=== PATIENT | female | born 1930 | race Caucasian/White ===

== ENCOUNTER 2017-08-05 21:41 | Inpatient (IN) | payer OTHER ==
[~2017-08-05] VITALS: Ht 160 cm; Wt 71.7 kg
[2017-08-06] VITALS (9 sets, daily range): BP systolic 102–134; BP diastolic 60–79; PULSE 88–113; TEMP 36.4–37.3; O2SAT 95–100; BMI 28.0
[2017-08-06] MEDS ORDERED: MULTCHW PO (00:40)
[2017-08-06] MEDS ORDERED: CALC600T9 PO (00:40)
[2017-08-06] MEDS ORDERED: PROP20TA67 PO (00:40)
[2017-08-06] MEDS ORDERED: OXYBUTYNIN CHLORIDE PO (00:40)
[2017-08-06] MEDS ORDERED: POLYETHYLENE (MIRALAX) 17 GM PACK PO PRN (01:15)
[2017-08-06] MEDS ORDERED: ONDANSETRON INJ 2 MG/ML 2 ML VIAL IV PRN ×2 (01:15→18:45)
[2017-08-06] MEDS ORDERED: ALUMINUM/MAGNESIUM/SIMETH (MAALOX MAX) 30 ML UDC PO PRN (01:15)
[2017-08-06] MEDS ORDERED: MAGNESIUM HYDROXIDE SUSP 30 ML UDC PO PRN (01:15)
[2017-08-06] MEDS: KETOROLAC TROMETHAMINE 15 MG/ML VIAL IV. PRN ×2 (02:05→09:08)
--- NOTE | 2017-08-06 02:09 | History and Physical ---
History & Physical Date & Time of Service: Aug 06, 2017 at 01:53 Chief Complaint: Left Hip Fracture, Left Humerus Fracture Primary Care Physician: No Doctor, Assigned History of Present Illness Source: patient, hospital records 87 yo F with Asthma, COPD, HTN, Factor V Leiden, ( not on anticoagulation for 1 year due ot GI bleed) transfer from [facility] after presenting from [facility] for History of Fall 2 wks ago. Fall was mechanical according to patient. While she was outside walking on side walk , she tripped fell on her left side. She denies head injury. She doesn't recall preceding presyncope, syncope , chest pain, palpitation, seizure like activity. Subsequently, she was found to have Left Humerus facture and had ORIF performed. Following procedure, pain did not subside. She reportedly had imaging performed showing acute fx above fixation site. Fx was managed non- operatively. She also reports as of today she has had Left hip pain x 3 days. pain worse with bearing weight. She went to [facility] ED and was found to have subcapital fx of femoral neck per outside hospital record. She normally uses walker for ambulation. Currently, she reports 4/10 pain at rest, worsens with movement. She reports significant shooting pain down left . She has a sling in place on Left arm. Past Medical/Surgical History PastMedHx: HTN COPD Factor 5 Leiden SurgHx: JENNIFER BSO Appendectomy Hemorrhoidectomy Total Shoulder replacement Back surgery IVC filter Family History Noncontributory Social History Smoking Status: Never Smoker Smokeless Tobacco Use: No Alcohol Use: occasionally Drug Use: none Housing status: intermediate Immunizations History of Influenza Vaccine: Unknown History of Tetanus Vaccine?: Unknown History of Pneumococcal: Unknown History of Hepatitis B Vaccine: Unknown Multi-Drug Resistant Organisms History of MDRO: No Allergies Coded Allergies: Hydromorphone (Verified Adverse Reaction, Unknown, DELIRIUM, 08/06/17) Morphine (Verified Adverse Reaction, Unknown, DELIRIUM, 08/06/17) Oxycodone (Verified Adverse Reaction, Unknown, DELIRIUM, 08/06/17) Home Medications Scheduled Acetaminophen Tab (Tylenol), 650 MG PO Q6 Alendronate Sodium (Fosamax), 70 MG PO WK Amlodipine (Norvasc), 5 MG PO DAILY Aspirin (Aspirin Chewable), 81 MG PO HS Calcium/Vitamin D (Os-Gold 500 Plus D), 1 TAB PO DAILY Cholecalciferol (Vitamin D 400 Iu), 800 INTER.UNIT PO DAILY Multiple Vitamins W/ Minerals (Centrum Silver), 1 TAB PO DAILY [dulcolax], 5 MG PO DAILY [melatonin], 1 PO DAILY Review of Systems Constitutional: No fever, No chills, No weakness Respiratory: No cough, No sputum, No shortness of breath Cardiovascular: No chest pain, No edema, No palpitations Abdomen: No pain, No nausea, No vomiting Musculoskeletal: + problem reported (Left HIp pain, Left UE pain) Genitourinary - Female: No dysuria, No urinary frequency, No urinary urgency Integumentary: No rash, No itch Physical Exam GENERAL: alert, no distress, non-toxic EYE EXAM: normal conjunctiva, PERRL and EOM's grossly intact OROPHARYNX: no exudate, no erythema, lips, buccal mucosa, and tongue normal and mucous membranes are moist NECK: supple, no nuchal rigidity, no adenopathy, non-tender LUNGS: Clear to auscultation. Normal chest wall mechanics HEART: no murmurs, S1 normal and S2 normal ABDOMEN: abdomen soft, non-tender, normo-active bowel sounds, no masses, no rebound or guarding. BACK: Back is symmetrical on inspection and there is no deformity, no midline tenderness, no CVA tenderness. SKIN: no rashes and no bruising UPPER EXTREMITIES: LUE: s/p Left humerus fx, sling in place LOWER EXTREMITIES: s/p L femur fx, LLE: range of motion limited due to pain. no notable swelling or ecchymoses. NEURO EXAM: AOx3, cranial nerves II-XII grossly intact, normal speech,intact Diagnostics Laboratory Results Results Past 24 Hours Test 08/06/17 01:11 Range/Units Impression Assessment and Plan 87 yo F with HTN, COPD, Factor V Leiden History of fall 2 wks ago with subsequent Left humerus fx s/p ORIF with new post-operative fx, transferred from outside hospital presenting with left Hip fracture reportedly from same Fall. Left Hip fracture * History of mechanical fall, resultant Impacted Left Femoral Neck Fracture per outside records * Orthopedics consulted ( [facility]) for further evaluation, possible intervention * Pain control: does not tolerate morphine, Dilaudid , Percocet form outside record * PRN IV Toradol * NPO * F/u CBC BMP, Trop Left Humerus fracture * History of mechanical fall , resultant Left Humerus fx s/p ORIF complicated acute post-operative fx * non-operative management according to family * Pain control as above * Orthopedics consult as above Hypertension * Restart home Propranolol COPD * stable * no current INH or oxygen use at home * continue to monitor Factor V Leiden, DVT prophylaxis * HIstory of RLE DVT, History fo IVC filter * Coumadin stopped 1 yr ago due to GI bleed * f/u coagulation panel * SCD, Hold anticoagulation prophylaxis prior to surgery Code status: DNR POLST form in chart Disposition: Med/Surg Attending addendum: I have physically seen this patient, have supervised the medical residents activities, and agree with the H&P unless as otherwise noted. Assessment and Plan: Left hip and recurrent left humerus fracture status post mechanical fall-- Admit to medical surgical floor. Nothing by mouth Patient intolerant of several pain medications including Dilaudid, morphine and Percocet. Trial of Toradol 15 mg IV every 6 hours as needed. Acetaminophen 1000 mg IV every 8 hours as needed Consult Dr. Clinton from [facility]. Factor V Leiden/right lower extremity DVT/status post IVC filter/GI bleed while on Coumadin since discontinued-- SCDs for DVT prophylaxis Start PPI Level of Care Med/Surg Resuscitation Status DO NOT RESUSCITATE VTE Prophylaxis VTE Risk Assessment Done? Y/N: Yes Risk Level: High Given or contraindicated: SCD's Social Service Consult Lives in Skilled Nursing Note Total Time: Critical Care 30 - 74 minutes Resident Tracking Resident Involvement: Resident Care Provided Care Provided: Adult Hospital Medicine
[2017-08-06 02:21] LABS: BASO % 0.7 %; BASO ABS # 0.06 K/uL (0-0.2); EOS % 1.9 %; EOS ABS # 0.16 K/uL (0-0.5); HEMATOCRIT 34.3 % (37-47); HEMOGLOBIN 11.3 g/dL (12.0-16.0); IG# 0.03 K/uL (0.00-0.02); LYMPH ABS # 2.13 K/uL (1.2-3.4); MEAN CORPUSCULAR HEMOGLOBIN 30.3 pg (25-34); MEAN CORPUSCULAR HGB CONC 32.9 g/dl (32-36); MEAN PLATELET VOLUME 8.9 fL (7.4-10.4); MONO % 9.3 %; MONO ABS # 0.79 K/uL (0.11-0.59); NEUT % 62.7 %; NEUT ABS # 5.35 K/uL (1.4-6.5); PLATELET COUNT 346 K/uL (130-400); RED CELL DISTRIBUTION WIDTH CV 14.4 % (11.5-14.5); RED CELL DISTRIBUTION WIDTH SD 48.5 fL (36.4-46.3); WHITE BLOOD COUNT 8.52 K/uL (4.8-10.8)
[2017-08-06 02:41] LABS: BLOOD UREA NITROGEN 18 mg/dl (7-18); CALCIUM 8.7 mg/dl (8.5-10.1); CARBON DIOXIDE 24 mmol/L (21-32); CREATININE 0.77 mg/dl (0.60-1.20); GLUCOSE 119 mg/dl (70-99); POTASSIUM 3.9 mmol/L (3.5-5.1); SODIUM 139 mmol/L (136-145)
[2017-08-06 02:48] LABS: PTT PATIENT 30.3 SECONDS (21.0-31.0)
[2017-08-06] MEDS ORDERED: ACETAMINOPHEN IV 650 MG in EMPTY BAG 0 ML IV PRN (05:15)
[2017-08-06] MEDS: NSS + 20MEQ KCL 1000ML 1,000 ML IV SCH ×2 (05:40→18:36)
[2017-08-06 06:23] LABS: ALKALINE PHOSPHATASE 124 U/L (45-117); ALT/SGPT 12 U/L (12-78); AST/SGOT 17 U/L (15-37); TOTAL PROTEIN 6.7 gm/dl (6.4-8.2)
--- NOTE | 2017-08-06 07:08 | DIAGNOSTIC IMAGING REPORT ---
CHEST ONE VIEW PORTABLE HISTORY: copd, asthma COMPARISON: None. FINDINGS: The lungs are clear. Cardiac silhouette is normal in size. No pleural effusions. No pneumothorax. Left shoulder prosthesis. IMPRESSION: No acute process. Electronically signed by: Terrell aFllon M.D. 08/06/2017 7:07 AM Dictated Date/Time: 08/06/2017 7:06 AM
--- NOTE | 2017-08-06 08:33 | DIAGNOSTIC IMAGING REPORT ---
L HUMERUS MIN 2 VIEWS ROUTINE CLINICAL HISTORY: Distal Humerus Fx COMPARISON: None. DISCUSSION: The study is limited from a technical standpoint. There are postsurgical changes of a left shoulder arthroplasty. There is an internally fixated fracture of the mid to distal humerus. There is a suspected refracture as there is 45 degrees of angulation at the fracture site. There is an old internally fixated olecranon fracture. IMPRESSION: 1. Suspected refracture of an internally fixated mid to distal humeral fracture. There is 45 degrees of angulation at the fracture site Electronically signed by: Ashkan Martinez M.D. 08/06/2017 8:32 AM Dictated Date/Time: 08/06/2017 8:27 AM
[2017-08-06] MEDS ORDERED: PROPRANOLOL HCL 20 MG TAB PO SCH (09:00)
[2017-08-06] MEDS ORDERED: AMLO-110 PO (10:53)
[2017-08-06] MEDS ORDERED: ALEN70TA2 PO (10:54)
[2017-08-06] MEDS ORDERED: ACET-1693 PO (10:54)
[2017-08-06] MEDS ORDERED: melatonin PO (10:58)
[2017-08-06] MEDS ORDERED: ASPCH81X PO (10:58)
[2017-08-06] MEDS ORDERED: CALC500C70 PO (11:01)
[2017-08-06] MEDS ORDERED: CHOL400C7 PO (11:01)
[2017-08-06] MEDS ORDERED: dulcolax PO (11:04)
--- NOTE | 2017-08-06 11:33 | DIAGNOSTIC IMAGING REPORT ---
LEFT FEMUR 4 VIEWS HISTORY: Left hip pain. Fracture. COMPARISON: Outside hospital pelvis/left hip 08/05/2017. FINDINGS: Abnormal appearance to the left femoral neck consistent with an impacted subcapital femoral neck fracture. This demonstrates mild superior displacement. No dislocation. The visualized pelvic bones are intact. Mild vascular calcifications. No fractures within the mid to distal femur. No radiopaque foreign bodies. IMPRESSION: Redemonstration of the left femoral neck subcapital fracture. Electronically signed by: Terrell Fallon M.D. 08/06/2017 11:32 AM Dictated Date/Time: 08/06/2017 11:30 AM
[2017-08-06] MEDS ORDERED: POVIDONE-IODINE OP SOLN 30 ML BTL ONE (15:05)
[2017-08-06] MEDS ORDERED: BACITRACIN 50000 UNIT VIAL ONE (15:06)
[2017-08-06] MEDS ORDERED: FENTANYL CITRATE INJ 50 MCG/1 ML 2 ML VIAL ONE (15:20)
[2017-08-06] MEDS ORDERED: ROCURONIUM BROMIDE 10 MG/ML 5 ML VIAL IV ONE (15:20)
[2017-08-06] MEDS ORDERED: LIDOCAINE HCL 2% 2 ML VIAL (20MG/ML) ONE (15:20)
[2017-08-06] MEDS ORDERED: PROPOFOL IV EMULSION 10 MG/ML 20 ML VIAL IV ONE (15:20)
[2017-08-06] MEDS ORDERED: LIDOCAINE HCL 2% JELLY 30 ML TUBE EXT ONE (15:25)
[2017-08-06] MEDS ORDERED: ATROPINE SULFATE 0.1 MG/ML 5ML SYR IV PRN (15:30)
[2017-08-06] MEDS ORDERED: EpHEDrine SULFATE INJ 50 MG/ML AMP IV PRN (15:30)
[2017-08-06] MEDS ORDERED: FENTANYL CITRATE INJ 50 MCG/1 ML 2 ML VIAL IV PRN (15:30)
--- NOTE | 2017-08-06 15:44 | Family Medicine Progress Note ---
Progress Note Date of Service Aug 06, 2017. Subjective Pt evaluation today including: conversation w/ patient, physical exam, chart review, lab review, review of studies Pain: 4/10 over left arm Voiding: no voiding problems, no incontinence Patient is resting comfortably in bed this morning and states that her left arm pain is much better controlled. She states that she has not complaints other than her left elbow and hip pain. Additional Comments: See HPI for pertinent positives and negatives. A total of ten systems were reviewed and were otherwise negative. Medications Current Inpatient Medications Medications (Trade) Dose Ordered Sig/Zuri Route Start Time Stop Time Status Last Admin Dose Admin Al Hydrox/Mg Hydrox/Simethicone (Maalox Max Susp) 15 ml Q4H PRN PO 08/06/17 01:15 09/05/17 01:14 Magnesium Hydroxide (Milk Of Magnesia Susp) 30 ml Q6H PRN PO 08/06/17 01:15 09/05/17 01:14 Polyethylene (Miralax Powder Packet) 17 gm DAILY PRN PO 08/06/17 01:15 09/05/17 01:14 Ketorolac Tromethamine (Toradol Inj) 15 mg Q6H PRN IV. 08/06/17 01:15 08/11/17 01:14 08/06/17 09:08 15 MG Acetaminophen 650 mg/Empty Bag 65 ml @ 260 mls/hr Q6H PRN IV 08/06/17 05:15 09/05/17 05:14 08/06/17 05:41 260 MLS/HR Potassium Chloride/Sodium Chloride 1,000 ml @ 75 mls/hr [id number] IV 08/06/17 05:16 09/05/17 05:15 08/06/17 05:40 75 MLS/HR Cholecalciferol (Vitamin D Tab) 1,000 inter.unit QAM PO 08/07/17 09:00 09/06/17 08:59 Fentanyl Citrate (Fentanyl Inj) 25 mcg Q5M PRN IV 08/06/17 15:30 08/06/17 20:30 Ephedrine Sulfate (EpHEDrine SULFATE INJ) 5 mg Q5M PRN IV 08/06/17 15:30 08/06/17 20:30 Atropine Sulfate (Atropine Sulfate 0.1mg/ml Inj) 0.5 mg Q1M PRN IV 08/06/17 15:30 08/06/17 20:30 Enoxaparin Sodium (Lovenox Inj) 40 mg Q24H SQ 08/07/17 08:00 09/06/17 07:59 Sodium Chloride 1,000 ml @ 100 mls/hr Q10H IV 08/06/17 19:02 09/05/17 18:36 Cefazolin Sodium 1000 mg/Syringe 7.5 ml @ 2.5 mls/min Q8H IV 08/07/17 00:00 08/07/17 08:02 Ondansetron HCl (Zofran Inj) 4 mg Q6H PRN IV 08/06/17 18:45 09/05/17 18:44 Acetaminophen (Tylenol Tab) 650 mg Q6H PRN PO 08/06/17 18:45 09/05/17 18:44 Naloxone HCl (Narcan Inj) 0.4 mg Q1M PRN IV 08/06/17 18:45 09/05/17 18:44 Menthol (Nice Samira) 1 samira Q2H PRN SAMIRA 08/06/17 18:45 09/05/17 18:44 Senna/Docusate Sodium (Senokot S Tab) 2 tab HS PO 08/06/17 21:00 09/05/17 20:59 Tramadol HCl (Ultram Tab) 50 mg Q4H PRN PO 08/06/17 18:45 09/05/17 18:44 Acetaminophen (Tylenol Tab) 650 mg Q6 PO 08/07/17 00:00 09/06/17 00:00 Alendronate Sodium (Fosamax Tab) 70 mg Sa@0700 PO 08/10/17 07:00 09/09/17 06:59 Amlodipine Besylate (Norvasc Tab) 5 mg DAILY PO 08/07/17 09:00 09/06/17 08:59 Aspirin (Aspirin Chew) 81 mg HS PO 08/06/17 21:00 09/05/17 20:59 Calcium/Vitamin D (Caltrate Plus Tab) 1 tab DAILY PO 08/07/17 09:00 09/06/17 08:59 Cholecalciferol (Vitamin D Tab) 800 inter.unit DAILY PO 08/07/17 09:00 09/06/17 08:59 Multivitamins/ Minerals (Multivitamin W/ Minerals Tab) 1 tab DAILY PO 08/07/17 09:00 09/06/17 08:59 Bisacodyl (Dulcolax Tab) 5 mg DAILY PO 08/07/17 09:00 09/06/17 08:59 Objective Vital Signs Date Time Temp Pulse Resp B/P (MAP) Pulse Ox O2 Delivery O2 Flow Rate FiO2 08/06/17 19:45 85 15 140/75 95 Room Air Oxymask 08/06/17 19:35 88 17 134/86 96 Room Air Oxymask 08/06/17 19:25 36.1 79 19 132/61 97 Room Air Oxymask 08/06/17 19:15 90 13 157/76 99 Room Air Oxymask 08/06/17 19:05 89 14 151/82 98 Nasal Cannula 2 Oxymask 08/06/17 18:55 90 20 143/78 97 Oxymask 10 08/06/17 18:47 36.0 90 16 148/75 98 Oxymask 10 08/06/17 14:30 36.7 91 18 144/76 (98) 93 Room Air 08/06/17 13:02 94 116/74 (88) Nasal Cannula 08/06/17 06:58 36.9 105 18 127/79 (95) 95 Room Air 08/06/17 00:45 Room Air 08/06/17 00:45 98 Room Air 08/06/17 00:15 37.3 113 18 125/77 (93) 98 Room Air Physical Exam General Appearance: WD/WN, no apparent distress Eyes: normal inspection, sclerae normal Neck: supple, no carotid bruits Respiratory/Chest: chest non-tender, lungs clear, normal breath sounds Cardiovascular: regular rate, rhythm, no edema, no gallop Abdomen: normal bowel sounds, non tender, soft Extremities: + pertinent finding (Left arm in ANN wrap and sling. Weakness over the left hand with numbness over the dorsum of the hand. LE strength 5/5 with sensation grossly intact. ) Neurologic/Psychiatric: alert, normal mood/affect, oriented x 3 Laboratory Results Results Past 24 Hours Test 08/06/17 02:08 08/06/17 05:34 Range/Units White Blood Count 8.52 4.8-10.8 K/uL Red Blood Count 3.73 4.2-5.4 M/uL Hemoglobin 11.3 12.0-16.0 g/dL Hematocrit 34.3 37-47 % Mean Corpuscular Volume 92.0 80-100 fL Mean Corpuscular Hemoglobin 30.3 25-34 pg Mean Corpuscular Hemoglobin Concent 32.9 32-36 g/dl Platelet Count 346 130-400 K/uL Mean Platelet Volume 8.9 7.4-10.4 fL Neutrophils (%) (Auto) 62.7 % Lymphocytes (%) (Auto) 25.0 % Monocytes (%) (Auto) 9.3 % Eosinophils (%) (Auto) 1.9 % Basophils (%) (Auto) 0.7 % Neutrophils # (Auto) 5.35 1.4-6.5 K/uL Lymphocytes # (Auto) 2.13 1.2-3.4 K/uL Monocytes # (Auto) 0.79 0.11-0.59 K/uL Eosinophils # (Auto) 0.16 0-0.5 K/uL Basophils # (Auto) 0.06 0-0.2 K/uL RDW Standard Deviation 48.5 36.4-46.3 fL RDW Coefficient of Variation 14.4 11.5-14.5 % Immature Granulocyte % (Auto) 0.4 % Immature Granulocyte # (Auto) 0.03 0.00-0.02 K/uL Prothrombin Time 10.8 9.0-12.0 SECONDS Prothromb Time International Ratio 1.0 0.9-1.1 Activated Partial Thromboplast Time 30.3 21.0-31.0 SECONDS Partial Thromboplastin Ratio 1.2 Sodium Level 139 136-145 mmol/L Potassium Level 3.9 3.5-5.1 mmol/L Chloride Level 106 98-107 mmol/L Carbon Dioxide Level 24 21-32 mmol/L Anion Gap 9.0 3-11 mmol/L Blood Urea Nitrogen 18 7-18 mg/dl Creatinine 0.77 0.60-1.20 mg/dl Estimated GFR () 79.9 Estimated GFR (Non- 68.9 BUN/Creatinine Ratio 23.8 10-20 Random Glucose 119 70-99 mg/dl Calcium Level 8.7 8.5-10.1 mg/dl Troponin I < 0.015 0-0.045 ng/ml Total Bilirubin 0.5 0.2-1 mg/dl Direct Bilirubin < 0.1 0-0.2 mg/dl Aspartate Amino Transf (AST/SGOT) 17 15-37 U/L Alanine Aminotransferase (ALT/SGPT) 12 12-78 U/L Alkaline Phosphatase 124 45-117 U/L Total Protein 6.7 6.4-8.2 gm/dl Albumin 3.0 3.4-5.0 gm/dl Microbiology Results 08/06/17 MRSA DNA Surveillance Screen - Final, Complete Specimen Negative for MRSA by DNA Probe Assessment and Plan Left Hip fracture * History of mechanical fall, resultant Impacted Left Femoral Neck Fracture * Patient cleared for Surgery * Plan to have surgery with Ortho this afternoon * Tylenol and Toradol for Pain * Cannot tolerate narcotics --> Acute confusion * NPO Left Humerus fracture * History of mechanical fall, resultant Left Humerus fx s/p ORIF complicated acute post-operative fx * Non-operative management when evaluated last week * Pain control as above * Orthopedics consult as above Osteoporosis - Vitamin D and Calcium levels - Vitamin D 1000 units - Start Bisphosphonate 1 month postoperatively Hypertension * Propranolol COPD * Stable * continue to monitor Factor V Leiden, DVT prophylaxis * History of RLE DVT, History fo IVC filter * Coumadin stopped 1 yr ago due to GI bleed * SCD * Lovenox postoperatively Code status: DNR POLST form in chart Resident Physician Supervision Note: I interviewed and examined the patient. Discussed with Dr. Martin and agree with findings and plan as documented in the note. Any exceptions or clarifications are listed here: None Documented By: Lowell Jorge feeling ok no cp no sob vitals noted nad breathing unlabored no pallor or icterus hip fx - medically acceptable for OR osteoporosis - denies prior treatment. bisphosphonate to start in ~4wks after healing time; check vitamin D then supplement appropriately along w calcium DVT proph - start lovenox Resident Tracking Resident Involvement: Resident Care Provided Care Provided: Adult Hospital Medicine
--- NOTE | 2017-08-06 15:53 | Orthopedic Consultation ---
Orthopedic Consultation Date of Consultation: Aug 06, 2017. Attending Physician: Lowell Jorge D.O. Reason for Consultation: Left hip fracture, left humeral shaft fracture History of Present Illness The patient is an 87-year-old female who presents for evaluation for left hip fracture and left humeral shaft fracture. A significant medical history of recent which includes a fall and injury to her left distal humerus on 07/17/2017 , seen and treated by Dr. Gamble and Keira, underwent ORIF distal humerus with subsequent radial nerve palsy and morgan-implant fracture seen by Dr. Gamble on . Per the patient and family who were present at bedside Dr. Gamble aware of radial nerve palsy, morgan-implant fracture and it was the decision of the family and Dr. Gamble to treat nonoperatively with splinting and fracture brace. The patient has follow-up with Dr. Gamble in regards to her left upper extremity. The patient continued to have left hip pain and was seen and evaluated at [facility] and subsequently diagnosed with a left femoral neck fracture. Due to the unavailability of Dr. Gamble patient was transferred to [facility] for treatment of the left hip. The patient family deny recent fall since 07/17/2017. She admits to numbness overlying the radial nerve in the left upper extremity as well as inability to extend her wrist or fingers. Admits to pain with ambulation on her left lower extremity at the hip denies any other associated injuries. Social History Smoking Status: Never Smoker Alcohol Use: occasionally Drug Use: none Allergies Uncoded Allergies: dilaudid, morphine, percocet (Adverse Reaction, Severe, DELIRIUM, 08/06/17) Home Medications Scheduled Acetaminophen Tab (Tylenol), 650 MG PO Q6 Alendronate Sodium (Fosamax), 70 MG PO WK Amlodipine (Norvasc), 5 MG PO DAILY Aspirin (Aspirin Chewable), 81 MG PO HS Calcium/Vitamin D (Os-Gold 500 Plus D), 1 TAB PO DAILY Cholecalciferol (Vitamin D 400 Iu), 800 INTER.UNIT PO DAILY Multiple Vitamins W/ Minerals (Centrum Silver), 1 TAB PO DAILY [dulcolax], 5 MG PO DAILY [melatonin], 1 PO DAILY Current Inpatient Medications Current Inpatient Medications Medications (Trade) Dose Ordered Sig/Zuri Route Start Time Stop Time Status Last Admin Dose Admin Al Hydrox/Mg Hydrox/Simethicone (Maalox Max Susp) 15 ml Q4H PRN PO 08/06/17 01:15 09/05/17 01:14 Magnesium Hydroxide (Milk Of Magnesia Susp) 30 ml Q6H PRN PO 08/06/17 01:15 09/05/17 01:14 Polyethylene (Miralax Powder Packet) 17 gm DAILY PRN PO 08/06/17 01:15 09/05/17 01:14 Ondansetron HCl (Zofran Inj) 4 mg Q6H PRN IV 08/06/17 01:15 09/05/17 01:14 Propranolol HCl (Inderal Tab) 40 mg BID PO 08/06/17 09:00 09/05/17 08:59 Ketorolac Tromethamine (Toradol Inj) 15 mg Q6H PRN IV. 08/06/17 01:15 08/11/17 01:14 08/06/17 09:08 15 MG Acetaminophen 650 mg/Empty Bag 65 ml @ 260 mls/hr Q6H PRN IV 08/06/17 05:15 09/05/17 05:14 08/06/17 05:41 260 MLS/HR Potassium Chloride/Sodium Chloride 1,000 ml @ 75 mls/hr [id number] IV 08/06/17 05:16 09/05/17 05:15 08/06/17 05:40 75 MLS/HR Cholecalciferol (Vitamin D Tab) 1,000 inter.unit QAM PO 08/07/17 09:00 09/06/17 08:59 Fentanyl Citrate (Fentanyl Inj) 25 mcg Q5M PRN IV 08/06/17 15:30 08/07/17 15:29 UNV Ephedrine Sulfate (EpHEDrine SULFATE INJ) 5 mg Q5M PRN IV 08/06/17 15:30 08/07/17 15:29 UNV Atropine Sulfate (Atropine Sulfate 0.1mg/ml Inj) 0.5 mg Q1M PRN IV 08/06/17 15:30 08/07/17 15:29 UNV Review of Systems Review of systems are negative with the exception of those mentioned in HPI above Physical Exam Date Time Temp Pulse Resp B/P (MAP) Pulse Ox O2 Delivery O2 Flow Rate FiO2 08/06/17 14:30 36.7 91 18 144/76 (98) 93 Room Air 08/06/17 13:02 94 116/74 (88) Nasal Cannula 08/06/17 06:58 36.9 105 18 127/79 (95) 95 Room Air 08/06/17 00:45 Room Air 08/06/17 00:45 98 Room Air 08/06/17 00:15 37.3 113 18 125/77 (93) 98 Room Air No apparent distress, alert and oriented 3. LUE +2 radial pulse, compartments soft, +edema, +ecchymosis, CR< 2 seconds. + Median, +ulnar nerve, complete radial nerve palsy. LLE: NVSI +EHL/FHL/TA/GS SILT grossly, CR< 2 seconds, +2DP pulse, compartment soft NT, skin intact, +log roll Laboratory Results Last 24 Hours Test 08/06/17 02:08 08/06/17 05:34 White Blood Count 8.52 K/uL Red Blood Count 3.73 M/uL Hemoglobin 11.3 g/dL Hematocrit 34.3 % Mean Corpuscular Volume 92.0 fL Mean Corpuscular Hemoglobin 30.3 pg Mean Corpuscular Hemoglobin Concent 32.9 g/dl Platelet Count 346 K/uL Mean Platelet Volume 8.9 fL Neutrophils (%) (Auto) 62.7 % Lymphocytes (%) (Auto) 25.0 % Monocytes (%) (Auto) 9.3 % Eosinophils (%) (Auto) 1.9 % Basophils (%) (Auto) 0.7 % Neutrophils # (Auto) 5.35 K/uL Lymphocytes # (Auto) 2.13 K/uL Monocytes # (Auto) 0.79 K/uL Eosinophils # (Auto) 0.16 K/uL Basophils # (Auto) 0.06 K/uL RDW Standard Deviation 48.5 fL RDW Coefficient of Variation 14.4 % Immature Granulocyte % (Auto) 0.4 % Immature Granulocyte # (Auto) 0.03 K/uL Prothrombin Time 10.8 SECONDS Prothromb Time International Ratio 1.0 Activated Partial Thromboplast Time 30.3 SECONDS Partial Thromboplastin Ratio 1.2 Sodium Level 139 mmol/L Potassium Level 3.9 mmol/L Chloride Level 106 mmol/L Carbon Dioxide Level 24 mmol/L Anion Gap 9.0 mmol/L Blood Urea Nitrogen 18 mg/dl Creatinine 0.77 mg/dl Estimated GFR () 79.9 Estimated GFR (Non- 68.9 BUN/Creatinine Ratio 23.8 Random Glucose 119 mg/dl Calcium Level 8.7 mg/dl Troponin I < 0.015 ng/ml Total Bilirubin 0.5 mg/dl Direct Bilirubin < 0.1 mg/dl Aspartate Amino Transf (AST/SGOT) 17 U/L Alanine Aminotransferase (ALT/SGPT) 12 U/L Alkaline Phosphatase 124 U/L Total Protein 6.7 gm/dl Albumin 3.0 gm/dl Assessment & Plan Left subcapital femoral neck fracture Left displaced distal one third humeral shaft fracture with radial nerve palsy. 87yo Female with displaced left femoral neck fracture sustained after a fall. The patient was medically stabilized on 08/06/2017. I indicated the patient for left hip hemiarthroplasty. The patient and family were informed of the risks and benefits of surgery, which included but not limited to infection, bleeding, blood clots, damage to nerves, vessels, bone and soft tissue, dislocation, leg length discrepancy, need for additional surgery and . The patient and family collectively chose to move forward with surgical intervention and informed consent was obtained. I will also perform a closed reduction and splint application while in the operating room of the left humeral shaft fracture in order to provide stability to the fracture while performing the hip hemiarthroplasty. I explained to the patient and family that this is only temporary treatment and will have the patient evaluated by my partner who is proficient with these complex upper extremity fractures to discuss conservative versus surgical treatment options further. The goal at this time is fracture stabilization with splint application with improvement of alignment at the fracture site. The risks and benefits of this procedure was described to the patient and included not limited to injury to the nerves, vessels, soft tissue, bone injury, malunion, nonunion, need for additional surgery, loss of function of the left upper extremity, blood clots in the left upper extremity. The patient and family were agreeable to close reduction and splint application of the left upper extremity and informed consent was obtained at this time as well. LEFT FEMUR 4 VIEWS HISTORY: Left hip pain. Fracture. COMPARISON: Outside hospital pelvis/left hip 08/05/2017. FINDINGS: Abnormal appearance to the left femoral neck consistent with an impacted subcapital femoral neck fracture. This demonstrates mild superior displacement. No dislocation. The visualized pelvic bones are intact. Mild vascular calcifications. No fractures within the mid to distal femur. No radiopaque foreign bodies. IMPRESSION: Redemonstration of the left femoral neck subcapital fracture. L HUMERUS MIN 2 VIEWS ROUTINE CLINICAL HISTORY: Distal Humerus Fx COMPARISON: None. DISCUSSION: The study is limited from a technical standpoint. There are postsurgical changes of a left shoulder arthroplasty. There is an internally fixated fracture of the mid to distal humerus. There is a suspected refracture as there is 45 degrees of angulation at the fracture site. There is an old internally fixated olecranon fracture. IMPRESSION: 1. Suspected refracture of an internally fixated mid to distal humeral fracture. There is 45 degrees of angulation at the fracture site
[2017-08-06] MEDS ORDERED: ROPIVACAINE 5MG/ML 30 ML 150 MG, BUPIVACAINE/EPINEPHR 0.5% MPF 30 ML, KETOROLAC TROMETH... INFIL SCH ×7 (16:30)
[2017-08-06] MEDS ORDERED: CEFAZOLIN SOD 1 GM VIAL ONE ×2 (16:46→16:55)
[2017-08-06] MEDS ORDERED: ONDANSETRON INJ 2 MG/ML 2 ML VIAL ONE (16:46)
[2017-08-06] MEDS ORDERED: DEXAMETHASONE SOD INJ 4 MG/ML VIAL ONE (16:46)
[2017-08-06] MEDS ORDERED: EpHEDrine SULFATE 50MG/5ML SYR ONE (16:48)
--- NOTE | 2017-08-06 17:15 | DIAGNOSTIC IMAGING REPORT ---
L HUMERUS MIN 2 VIEW ROUTINE CLINICAL HISTORY: LT DISTAL HUMERUS fracture COMPARISON: None. DISCUSSION: Image intensifier was utilized for intraoperative guidance for open reduction internal fixation. Soft tissue postoperative change. IMPRESSION: Image intensifier was utilized for intraoperative guidance purposes. No diagnostic images are submitted. The above report was generated using voice recognition software. It may contain grammatical, syntax or spelling errors. Electronically signed by: Ford London M.D. 08/06/2017 5:14 PM Dictated Date/Time: 08/06/2017 5:13 PM
[2017-08-06] MEDS ORDERED: GLYCOPYRROLATE INJ 0.2 MG/ML VIAL ONE (17:29)
[2017-08-06] MEDS ORDERED: NEOSTIGMINE METHYLSULFATE 5 MG/5 ML SYR ONE (17:29)
--- NOTE | 2017-08-06 18:33 | [facility] Post Operative Brief Note ---
Immediate Operative Summary Operative Date Aug 06, 2017. Pre-Operative Diagnosis Left subcapital femoral neck fracture Left displaced distal one third humeral shaft fracture with radial nerve palsy Post-Operative Diagnosis Left subcapital femoral neck fracture Left displaced distal one third humeral shaft fracture with radial nerve palsy Procedure(s) Performed Left Bipolar Hemiarthroplasty; Left Closed Reduction and Splinting Distal Humerus Fracture Surgeon Dr. Mendieta Drivability Technician Surgeon(s) Guero Mario PA-C Estimated Blood Loss 300cc Findings Consistent with Post-Op Diagnosis Fluids (cc crystalloids) 1600 Specimens A. Left femoral head Drains None Anesthesia Type General Complication(s) none Disposition Disposition: Recovery Room / PACU
[2017-08-06] MEDS ORDERED: COUGH DROP (SUGAR FREE) LOZ 24 LOZ/1 BOX LOZ PRN (18:45)
[2017-08-06] MEDS ORDERED: NALOXONE HCL 0.4 MG/1 ML VIAL/CARP IV PRN (18:45)
[2017-08-06] MEDS ORDERED: TRAMADOL HCL 50 MG TAB PO PRN (18:45)
[2017-08-06] MEDS ORDERED: ACETAMINOPHEN 325 MG TAB PO PRN (18:45)
--- NOTE | 2017-08-06 18:59 | [facility] Operative Report ---
Operative Report Operative Date Aug 06, 2017. Pre-Operative Diagnosis Left subcapital femoral neck fracture Left displaced distal one third humeral shaft fracture with radial nerve palsy Post-Operative Diagnosis Left subcapital femoral neck fracture Left displaced distal one third humeral shaft fracture with radial nerve palsy Procedure(s) Performed Left Bipolar Hemiarthroplasty Cemented; Left Closed Reduction and Splinting Distal Humerus Fracture Surgeon Dr. Mendieta Sr Account Executive Surgeon(s) Guero Mario PA-C Estimated Blood Loss 300cc Findings See dictated op note Fluids 1600 Specimens A. Left femoral head Drains None Anesthesia Type General Complication(s) none Disposition Recovery Room / PACU Indications 87yo Female with displaced left femoral neck fracture sustained after a fall. The patient was medically stabilized on 08/06/2017. I indicated the patient for left hip hemiarthroplasty. The patient and family were informed of the risks and benefits of surgery, which included but not limited to infection, bleeding, blood clots, damage to nerves, vessels, bone and soft tissue, dislocation, leg length discrepancy, need for additional surgery and . The patient and family collectively chose to move forward with surgical intervention and informed consent was obtained. I will also perform a closed reduction and splint application while in the operating room of the left humeral shaft fracture in order to provide stability to the fracture while performing the hip hemiarthroplasty. I explained to the patient and family that this is only temporary treatment and will have the patient evaluated by my partner who is proficient with these complex upper extremity fractures to discuss conservative versus surgical treatment options further. The goal at this time is fracture stabilization with splint application with improvement of alignment at the fracture site. The risks and benefits of this procedure was described to the patient and included not limited to injury to the nerves, vessels, soft tissue, bone injury, malunion, nonunion, need for additional surgery, loss of function of the left upper extremity, blood clots in the left upper extremity. The patient and family were agreeable to close reduction and splint application of the left upper extremity and informed consent was obtained at this time as well. Description of Procedure Following induction of adequate anesthesia, the patient was transferred to the OR table and placed in the supine position. Surgical timeout performed site darian identified. The patient's left upper extremity surgical incision was examined and was clean dry and intact. Under C-arm fluoroscopy gentle valgus pressure was applied to the humeral shaft achieving improved fracture positioning. Webril applied to the left upper extremity from the hand to the shoulder and a coaptation with long posterior splint applied and held in place while plaster hardened. Final images post reduction were obtained demonstrating improvement in fracture positioning with mild displacement at the fracture site. Next the patient was placed in the lateral decubitus position with right hip down. The left hip was prepped and draped in usual sterile manner. A posterior incision was made. Subcutaneous tissue was sharply dissected. Electro cautery was used for hemostasis. Fascia was incised throughout the length of the wound and the piriformis was identified. A #1 Vicryl suture was used to tag the piriformis. The short external rotators were divided from the posterior aspect of the femur and a capsulotomy was performed. A second #1 Vicryl suture was used to tag the capsule. Next, I turned my attention to the femoral neck fracture. The fracture was relatively high on the calcar and decision was made to proceed with the oscillating saw and create the calcar osteotomy. This bone fragment was removed. Following this, tenaculum and cob elevator was utilized to remove the femoral head. The head was measured on the back table and the 47 mm femoral head was chosen as the size to be used. Next, attention was turned to the acetabulum which was found to have no significant arthritis. All bony debris was removed. A sponge was placed in the acetabulum. Attention was then turned to the proximal femur where box osteotome was used to gain access to the femoral canal. A canal finder and power lateralizing reamer were utilized to further open. Sequential raspings were taken up to a 12 size shaft, which was sunk completely and trial reduction was carried out and a 28 mm +0 femoral head was chosen the size to be used with the 47 bipolar cup. Following a trial reduction, the hip was found to be stable to 45 degrees of internal rotation and 90 degrees of flexion with equal leg lengths. The calcar reamer was utilized to smooth the calcar and the instruments and trial components were removed. The hip was thoroughly irrigated with pulsatile irrigation. The canal was irrigated and dried, cement restrictor was placed and [place] cement was mixed. The size 12 low demand fracture stem was placed with a 10 mm centralizer and this was held in position well. All excess cement was removed and cement hardened. Following insertion of final stem component another trial reduction was carried out and again a +0 neck size was chosen as the size to be used. The final head and neck was impacted into position and the hip was reduced and stablity assess and was found to be stable to 45 degrees of internal rotation and 90 degrees of flexion. The wound was again irrigated. The [facility] joint mix was injected throughout the hip and the capsule was repaired using 5 fiberwire sutures through drill holes. Following this, the short external rotators were reapproximated to the posterior aspect of the femur also through drill holes and these were tied. Once again the wound was copiously irrigated with sterile saline solution. Fascia was closed using #1 Vicryl [id number] sutures, subcutaneous tissue was closed using 2- 0 vicryl, and skin was closed with andrea. Sterile dressings xeroform, 4x4's, abd's, and silverlon were applied and abduction pillow placed between the legs. The patient tolerated the procedure well and was taken to recovery room in stable condition. Due to the complex nature of the procedure, the entire surgery was performed with the operational assistance of Guero Mario PA-C. The ophthalmic surgical assistant, under direct supervision, was involved in the actual performance of all aspects of the surgical procedure including hemostasis, tissue retraction and incision, instrument management, patient positioning, and wound closure. I attest to the content of the Intraoperative Record and any orders documented therein. Any exceptions are noted below. I attest to the content of the Intraoperative Record and any orders documented therein. Any exceptions are noted below.
--- NOTE | 2017-08-06 19:10 | Orthopedic Progress Note ---
Orthopedic Progress Note Date of Service Aug 06, 2017. Subjective Additional Notes: Postoperative progress note The patient seen in PACU, comfortable, pain well controlled, actively moving all 4 extremities, no acute issues. Objective NAD, AOx3 LUE +2 radial pulse, compartments soft, +edema, +ecchymosis, CR< 2 seconds. + Median, +ulnar nerve, complete radial nerve palsy. Unchanged from pre- operative exam, coaptation splint intact LLE: NVSI +EHL/FHL/TA/GS SILT grossly, CR< 2 seconds, +2DP pulse, compartment soft NT, dressing cdi, abduction pillow in place Date Time Temp Pulse Resp B/P (MAP) Pulse Ox O2 Delivery O2 Flow Rate FiO2 08/06/17 14:30 36.7 91 18 144/76 (98) 93 Room Air 08/06/17 13:02 94 116/74 (88) Nasal Cannula 08/06/17 06:58 36.9 105 18 127/79 (95) 95 Room Air 08/06/17 00:45 Room Air 08/06/17 00:45 98 Room Air 08/06/17 00:15 37.3 113 18 125/77 (93) 98 Room Air Laboratory Results 24 Hours: Test 08/06/17 02:08 White Blood Count 8.52 K/uL Red Blood Count 3.73 M/uL Hemoglobin 11.3 g/dL Hematocrit 34.3 % Mean Corpuscular Volume 92.0 fL Mean Corpuscular Hemoglobin 30.3 pg Mean Corpuscular Hemoglobin Concent 32.9 g/dl Platelet Count 346 K/uL Mean Platelet Volume 8.9 fL Neutrophils (%) (Auto) 62.7 % Lymphocytes (%) (Auto) 25.0 % Monocytes (%) (Auto) 9.3 % Eosinophils (%) (Auto) 1.9 % Basophils (%) (Auto) 0.7 % Neutrophils # (Auto) 5.35 K/uL Lymphocytes # (Auto) 2.13 K/uL Monocytes # (Auto) 0.79 K/uL Eosinophils # (Auto) 0.16 K/uL Basophils # (Auto) 0.06 K/uL Prothromb Time International Ratio 1.0 Prothrombin Time 10.8 SECONDS Assessment & Plan Assessment: Status post left hip hemiarthroplasty for left femoral neck fracture Closed reduction and coaptation splint application for left morgan-implant distal 1/3rd humerus fracture Plan: -Ancef x 24 -DVT ppx - Lovenox 40mg daily -WBAT LLE -NWB LUE -PT/OT -Posterior hip precautions -PO XR left hip: pending -CT with metal supression left humerus -Am labs
--- NOTE | 2017-08-06 19:22 | Anesthesiology Progress Note ---
Anesthesia Post Op Note Date & Time Aug 06, 2017 at 19:22 Vital Signs Pain Intensity: 0 Vital Signs Past 12 Hours Date Time Temp Pulse Resp B/P (MAP) Pulse Ox O2 Delivery O2 Flow Rate FiO2 08/06/17 19:15 90 13 157/76 99 Room Air Oxymask 08/06/17 19:05 89 14 151/82 98 Nasal Cannula 2 Oxymask 08/06/17 18:55 90 20 143/78 97 Oxymask 10 08/06/17 18:47 36.0 90 16 148/75 98 Oxymask 10 08/06/17 14:30 36.7 91 18 144/76 (98) 93 Room Air 08/06/17 13:02 94 116/74 (88) Nasal Cannula Notes Mental Status: alert / awake / arousable, participated in evaluation Pt Amnestic to Procedure: Yes Nausea / Vomiting: adequately controlled Pain: adequately controlled Airway Patency, RR, SpO2: stable & adequate BP & HR: stable & adequate Hydration State: stable & adequate Anesthetic Complications: no major complications apparent
--- NOTE | 2017-08-06 19:59 | DIAGNOSTIC IMAGING REPORT ---
LEFT HIP 2 VIEWS CLINICAL HISTORY: Postoperative examination. Status post arthroplasty. FINDINGS: AP and crosstable lateral portable views of the left hip are correlated with pelvic radiograph dated 08/05/2017. The skeletal structures are osteopenic. A unipolar left hip arthroplasty is in near anatomic alignment. No acute fracture is seen. The visualized left hemipelvis appears intact. Soft tissue edema and subcutaneous gas overlying the left hip are consistent with recent surgery. There is rectosigmoid fecal impaction. IMPRESSION: Expected postoperative findings status post left arthroplasty. No acute fracture is seen. Electronically signed by: Jay Menard M.D. 08/06/2017 7:58 PM Dictated Date/Time: 08/06/2017 7:56 PM
[2017-08-06] MEDS ORDERED: MELATONIN PO SCH (21:00)
--- NOTE | 2017-08-06 21:04 | DIAGNOSTIC IMAGING REPORT ---
CT SCAN OF THE LEFT HUMERUS WITHOUT IV CONTRAST CLINICAL HISTORY: Left humeral fracture. COMPARISON STUDY: Radiographs of the left humerus dated 08/06/2017. TECHNIQUE: CT scan of the left humerus is performed from the shoulder to the elbow. Images are reviewed in the axial, sagittal, and coronal planes. IV contrast was not administered for this examination. The examination is degraded by streak artifact from extensive orthopedic hardware. A metal suppression technique was utilized. The examination is also degraded by motion and suboptimal positioning. A dose lowering technique was utilized adhering to the principles of ALARA. CT DOSE: 1803.16 mGy.cm FINDINGS: The skeletal structures are osteopenic. A left shoulder arthroplasty is in near-anatomic alignment. The proximal humerus appears intact. Bony overgrowth is noted around the humeral head. There is chronic posttraumatic deformity of the distal humerus. A buttress plate is present along the posterior aspect of the distal humeral shaft. Numerous cortical screws transfix the buttress plate. The orthopedic hardware is intact as visualized. Postoperative change is also seen in the olecranon process of the ulna. There is an acute comminuted fracture involving the mid to distal humeral shaft. This extends from the top of the buttress plate to the elbow joint. There are anteriorly distracted fragments seen along the anterior aspect of the distal humeral shaft. There is apex dorsal angulation, as well as overriding of the fragments by at least 2 cm. There is soft tissue edema and hematoma identified around the fracture site. This is greatest posterior to the elbow. The proximal radius is intact as visualized. There is age indeterminant nondistracted fracture through the base of the olecranon process of the ulna. There are healed left-sided rib fractures. IMPRESSION: 1. Suboptimal examination as above. 2. There is an acute, comminuted, angulated, and overriding fracture of the mid to distal humeral shaft. This extends from the top of buttress plate to the elbow joint. 3. There is age indeterminant nondistracted fracture through the base of the olecranon process of the ulna. 4. Soft tissue edema and hematoma is present around the fracture site, greatest along the dorsal aspect of the elbow. Dictated: 08/06/2017 8:40 PM Transcribed: 08/06/2017 9:04 PM [email or web address] Electronically signed by: Jay Menard M.D. 08/06/2017 9:23 PM Dictated Date/Time: 08/06/2017 8:40 PM
[2017-08-06] MEDS: DOCUSATE SODIUM/SENNA 50/8.6MG TAB PO SCH (21:28)
[2017-08-06] MEDS: SODIUM CHLORIDE 0.9% 1000ML 1,000 ML IV SCH (21:28)
[2017-08-06] MEDS: ASPIRIN 81 MG CHEW PO SCH (21:28)
[2017-08-07] MEDS: CEFAZOLIN IV 1,000 MG in SYRINGE 0 ML IV SCH ×2 (00:09→09:25)
[2017-08-07] MEDS: ACETAMINOPHEN 325 MG TAB PO SCH ×5 (00:10→23:28)
[2017-08-07 03:12] VITALS: BP 109/70; PULSE 115; TEMP 36.7; O2SAT 95
[2017-08-07] MEDS: SODIUM CHLORIDE 0.9% 1000ML 1,000 ML IV SCH ×2 (05:13→15:38)
[2017-08-07 07:45] VITALS: BP 122/68; PULSE 104; TEMP 36.6; O2SAT 95
--- NOTE | 2017-08-07 08:53 | Orthopedic Progress Note ---
Orthopedic Progress Note Date of Service Aug 07, 2017. Subjective Post OP Day: 1 Reports: feeling well, Denies: chest pain, SOB, nausea / vomiting, light headedness, calf pain Additional Notes: PATIENT IS PLEASANT THIS AM. STATES HER HIP AND LUE ARE COMFORTABLE. THEY HAD DIFFICULTY GETTING HER LABS THIS AM AND THAT IS HER BIGGEST COMPLAINT AT THIS TIME. SPLINT IS COMFORTABLE. SHE DENIES COMPLAINTS. Objective calves soft nontender, N/V intact, splint C/D/I (LUE. MILD SWELLING AT THE FINGERS, ROM/SENSATION DECREASED (THIS IS BASELINE)), hip located, capillary refill less than 2 sec., dressing C/D/I, A&O x3, toes mobile Date Time Temp Pulse Resp B/P (MAP) Pulse Ox O2 Delivery O2 Flow Rate FiO2 08/07/17 07:45 36.6 104 18 122/68 (86) 95 Room Air 08/07/17 03:12 36.7 115 14 109/70 (83) 95 Room Air 08/07/17 00:00 Room Air 08/06/17 22:52 36.4 112 16 102/60 (74) 97 Room Air 08/06/17 22:01 36.5 112 16 124/71 (88) 97 Room Air 08/06/17 21:15 36.5 100 16 134/72 (92) 97 Room Air 08/06/17 20:39 36.5 94 16 125/69 (87) 97 Room Air 08/06/17 19:50 100 Room Air Oxymask 08/06/17 19:50 36.5 88 20 126/67 (86) 100 Room Air 0.0 Oxymask 08/06/17 19:50 100 Room Air Oxymask 08/06/17 19:45 85 15 140/75 95 Room Air Oxymask 08/06/17 19:35 88 17 134/86 96 Room Air Oxymask 08/06/17 19:25 36.1 79 19 132/61 97 Room Air Oxymask 08/06/17 19:15 90 13 157/76 99 Room Air Oxymask 08/06/17 19:05 89 14 151/82 98 Nasal Cannula 2 Oxymask 08/06/17 18:55 90 20 143/78 97 Oxymask 10 08/06/17 18:47 36.0 90 16 148/75 98 Oxymask 10 08/06/17 14:30 36.7 91 18 144/76 (98) 93 Room Air 08/06/17 13:02 94 116/74 (88) Nasal Cannula Laboratory Results 24 Hours: Test 08/07/17 08:27 Assessment & Plan Assessment: Status post left hip hemiarthroplasty for left femoral neck fracture Closed reduction and coaptation splint application for left morgan-implant distal 06/19 humerus fracture Plan: -Ancef x 24 -DVT ppx - Lovenox 40mg daily -WBAT LLE -NWB LUE -PT/OT -Posterior hip precautions -PO XR left hip: well aligned, well fixed prosthesis without fracture or dislocation -CT with metal supression left humerus -Am labs -DC PLANNING- PATIENT WILL NEED INPT REHAB. [facility] IS FIRST CHOICE. -DR. SELLERS TO SEE TODAY TO JOHN CACERES. Per Dr. Sellers evaluation, maintain splint LUE, patient will follow up with Dr. Gamble for her care for her left humerus fracture.
[2017-08-07] MEDS ORDERED: ENOXAPARIN 40 MG/0.4 ML SYR SQ SCH (09:00)
[2017-08-07 09:02] LABS: HEMATOCRIT 27.3 % (37-47); HEMOGLOBIN 9.3 g/dL (12.0-16.0); MEAN CELL VOLUME 91.3 fL (80-100); MEAN CORPUSCULAR HEMOGLOBIN 31.1 pg (25-34); MEAN CORPUSCULAR HGB CONC 34.1 g/dl (32-36); MEAN PLATELET VOLUME 8.9 fL (7.4-10.4); PLATELET COUNT 317 K/uL (130-400); RED CELL DISTRIBUTION WIDTH CV 14.5 % (11.5-14.5); RED CELL DISTRIBUTION WIDTH SD 48.6 fL (36.4-46.3); WHITE BLOOD COUNT 11.38 K/uL (4.8-10.8)
[2017-08-07 09:09] VITALS: O2SAT 95
[2017-08-07] MEDS: CEROVITE ADV FORMULA TAB PO SCH (09:25)
[2017-08-07] MEDS: NSS + 20MEQ KCL 1000ML 1,000 ML IV SCH (09:25)
[2017-08-07] MEDS: CHOLECALCIFEROL 1000 INTER.UNIT TAB PO SCH (09:25)
[2017-08-07] MEDS: CALCIUM 600MG + VIT D 400 IU TAB PO SCH (09:26)
[2017-08-07] MEDS: AMLODIPINE BESYLATE 5 MG TAB PO SCH (09:26)
[2017-08-07] MEDS: CHOLECALCIFEROL 400 INTER.UNIT TAB PO SCH (09:26)
--- NOTE | 2017-08-07 09:28 | Clinical Documentation Query ---
CLINICAL DOCUMENTATION QUERY Dr. MURRAY, In your clinical opinion is this patient being managed for: ( ) Osteoporotic fracture, L humerus ( ) Osteoporotic fracture, L femoral neck ( ) Not Agree ( ) Other explanation of clinical findings (Please Explain) ( ) Unable to determine (Please Define) ( ) Need to Discuss The medical record reflects the following clinical findings, treatment, and risk factors. Clinical Indicators: 87 yo female transferred to [facility] with a L femur fracture and L humeral fracture noted to be a post-operative fracture. Pt also noted to have osteoporosis. Treatment: outpatient treatment includes fosamax, oscal and vitamin D, vitamin D level pending Risk Factors: age, gender, ground level fall, osteoporosis A pathological fracture is a break in a diseased bone due to weakening of the structure by pathologic processes, such as osteoporosis or bone tumors, without any identifiable trauma or following only minor trauma. Only the provider can make the determination that the fracture is out of proportion to the degree of trauma. Please clarify and document your clinical opinion in the progress notes and discharge summary. Terms such as "probable", "suspected", "likely", "questionable", "possible", or "still to be ruled out" are acceptable. IF IN AGREEMENT, YOU MUST DOCUMENT ABOVE DIAGNOSTIC STATEMENT IN DAILY PROGRESS NOTES AND DISCHARGE SUMMARY. This document is not part of the patient's record. Thank You, Graciela Pope, RN [phone]
--- NOTE | 2017-08-07 09:29 | Clinical Documentation Query ---
CLINICAL DOCUMENTATION QUERY Dr. LAURA, In your clinical opinion is this patient being managed for: ( x ) Osteoporotic fracture, L humerus ( x ) Osteoporotic fracture, L femoral neck ( ) Not Agree ( ) Other explanation of clinical findings (Please Explain) ( ) Unable to determine (Please Define) ( ) Need to Discuss The medical record reflects the following clinical findings, treatment, and risk factors. Clinical Indicators: 87 yo female transferred to [facility] with a L femur fracture and L humeral fracture noted to be a post-operative fracture. Pt also noted to have osteoporosis. Treatment: outpatient treatment includes fosamax, oscal and vitamin D, vitamin D level pending Risk Factors: age, gender, ground level fall, osteoporosis Please clarify and document your clinical opinion in the progress notes and discharge summary. Terms such as "probable", "suspected", "likely", "questionable", "possible", or "still to be ruled out" are acceptable. IF IN AGREEMENT, YOU MUST DOCUMENT ABOVE DIAGNOSTIC STATEMENT IN DAILY PROGRESS NOTES AND DISCHARGE SUMMARY. This document is not part of the patient's record. Thank You, Graciela Pope RN [phone]
[2017-08-07 09:43] LABS: CREATININE 0.74 mg/dl (0.60-1.20); POTASSIUM 4.3 mmol/L (3.5-5.1)
[2017-08-07] MEDS: ENOXAPARIN 40 MG/0.4 ML SYR SQ SCH (12:36)
[2017-08-07] MEDS: BISACODYL 5 MG TABEC PO SCH (12:37)
[2017-08-07 14:34] VITALS: Ht 160 cm; Wt 71.7 kg
[2017-08-07 15:03] VITALS: BP 114/63; PULSE 96; TEMP 37.1; O2SAT 99
--- NOTE | 2017-08-07 18:31 | Progress Note ---
Subjective Date of Service: Aug 07, 2017. Subjective Pt evaluation today including: conversation w/ patient, physical exam, chart review, lab review, review of studies, review of inpatient medication list feels ok no significant pain no complaints except that she has to get up to void discusseed meds - has osteoporosis regimen as outpt and still had fractures Review of Systems all other ROS otherwise negative except for as above Objective Vital Signs Date Time Temp Pulse Resp B/P (MAP) Pulse Ox O2 Delivery O2 Flow Rate FiO2 08/07/17 15:03 37.1 96 18 114/63 (80) 99 Room Air 08/07/17 09:09 95 08/07/17 07:45 36.6 104 18 122/68 (86) 95 Room Air 08/07/17 07:15 Room Air 08/07/17 03:12 36.7 115 14 109/70 (83) 95 Room Air 08/07/17 00:00 Room Air 08/06/17 22:52 36.4 112 16 102/60 (74) 97 Room Air 08/06/17 22:01 36.5 112 16 124/71 (88) 97 Room Air 08/06/17 21:15 36.5 100 16 134/72 (92) 97 Room Air 08/06/17 20:39 36.5 94 16 125/69 (87) 97 Room Air 08/06/17 19:50 100 Room Air Oxymask 08/06/17 19:50 36.5 88 20 126/67 (86) 100 Room Air 0.0 Oxymask 08/06/17 19:50 100 Room Air Oxymask 08/06/17 19:45 85 15 140/75 95 Room Air Oxymask 08/06/17 19:35 88 17 134/86 96 Room Air Oxymask 08/06/17 19:25 36.1 79 19 132/61 97 Room Air Oxymask 08/06/17 19:15 90 13 157/76 99 Room Air Oxymask 08/06/17 19:05 89 14 151/82 98 Nasal Cannula 2 Oxymask 08/06/17 18:55 90 20 143/78 97 Oxymask 10 08/06/17 18:47 36.0 90 16 148/75 98 Oxymask 10 Physical Exam General Appearance: no apparent distress Eyes: EOMI ENT: hearing grossly normal Neck: trachea midline Respiratory/Chest: no respiratory distress, no accessory muscle use Neurologic/Psychiatric: sink maker II-XII nml as tested, alert, normal mood/affect Laboratory Results Last 24 Hours Test 08/07/17 08:27 White Blood Count 11.38 K/uL Red Blood Count 2.99 M/uL Hemoglobin 9.3 g/dL Hematocrit 27.3 % Mean Corpuscular Volume 91.3 fL Mean Corpuscular Hemoglobin 31.1 pg Mean Corpuscular Hemoglobin Concent 34.1 g/dl RDW Standard Deviation 48.6 fL RDW Coefficient of Variation 14.5 % Platelet Count 317 K/uL Mean Platelet Volume 8.9 fL Nucleated RBC Absolute Count (auto) 0.00 K/uL Nucleated Red Blood Cells % 0.0 % Sodium Level 136 mmol/L Potassium Level 4.3 mmol/L Chloride Level 106 mmol/L Carbon Dioxide Level 21 mmol/L Anion Gap 9.0 mmol/L Blood Urea Nitrogen 16 mg/dl Creatinine 0.74 mg/dl Est Creatinine Clear Calc Drug Dose 49.9 ml/min Estimated GFR () 83.8 Estimated GFR (Non- 72.3 BUN/Creatinine Ratio 21.8 Random Glucose 164 mg/dl Calcium Level 8.0 mg/dl 25-Hydroxy Vitamin D Total 60.2 ng/ml Assessment and Plan osteoporotic Left Hip fracture * History of mechanical fall, resultant Impacted Left Femoral Neck Fracture * Post op and doing well * PT/OT and anticipate SNF or rehab osteoporotic Left Humerus fracture * History of mechanical fall, resultant Left Humerus fx s/p ORIF complicated acute post-operative fx * Non-operative management when evaluated last week * Pain control as above * Orthopedics consult as above Osteoporosis - D level good at 60, on bisphosphonate already - case management to facilitate endocrine for next level treatments Hypertension * control adequate - continue current meds COPD * Stable, continue current meds * continue to monitor Factor V Leiden, DVT prophylaxis * History of RLE DVT, History fo IVC filter * Coumadin stopped 1 yr ago due to GI bleed * SCD * Lovenox postoperatively Code status: DNR POLST form in chart
[2017-08-07] MEDS: DOCUSATE SODIUM/SENNA 50/8.6MG TAB PO SCH (20:59)
[2017-08-07] MEDS: ASPIRIN 81 MG CHEW PO SCH (20:59)
[2017-08-07 23:58] VITALS: BP 113/69; PULSE 106; TEMP 37.3; O2SAT 95
[2017-08-08] MEDS: SODIUM CHLORIDE 0.9% 1000ML 1,000 ML IV SCH ×2 (01:28→11:11)
[2017-08-08] MEDS: ACETAMINOPHEN 325 MG TAB PO SCH ×2 (06:04→11:43)
[2017-08-08 07:06] VITALS: BP 108/66; PULSE 73; TEMP 37.1; O2SAT 98
--- NOTE | 2017-08-08 08:39 | Orthopedic Progress Note ---
Orthopedic Progress Note Date of Service Aug 08, 2017. Subjective Post OP Day: 2 Reports: feeling well, Denies: chest pain, SOB, nausea / vomiting, light headedness, calf pain Objective calves soft nontender, N/V intact, splint C/D/I (MILD SWELLING LEFT HAND. FINGERS MOBILE.), capillary refill less than 2 sec., dressing C/D/I (silverlon) , A&O x3, toes mobile Date Time Temp Pulse Resp B/P (MAP) Pulse Ox O2 Delivery O2 Flow Rate FiO2 08/08/17 07:30 Room Air 08/08/17 07:06 37.1 73 18 108/66 (80) 98 Room Air 08/07/17 23:58 37.3 106 18 113/69 (84) 95 Room Air 08/07/17 23:30 Room Air 08/07/17 16:00 Room Air 0.0 08/07/17 15:03 37.1 96 18 114/63 (80) 99 Room Air 08/07/17 09:09 95 Assessment & Plan Assessment: Status post left hip hemiarthroplasty for left femoral neck fracture Closed reduction and coaptation splint application for left morgan-implant distal 06/19 humerus fracture Plan: -Ancef x 24 -DVT ppx - Lovenox 40mg daily -WBAT LLE -NWB LUE -PT/OT -Posterior hip precautions -PO XR left hip: well aligned, well fixed prosthesis without fracture or dislocation -CT with metal supression left humerus -Am labs -DC PLANNING- PATIENT WILL NEED INPT REHAB. [facility] IS FIRST CHOICE. Per Dr. Ledezma evaluation, maintain splint LUE, patient will follow up with Dr. Gamble for her care for her left humerus fracture.
--- NOTE | 2017-08-08 08:42 | Consultant Recommendations ---
Tool Maker Apprentice Recommendations Date of Service Aug 08, 2017. Tool Maker Apprentice Recommendations MAINTAIN LEFT UPPER EXTREMITY SPLINT UNTIL PATIENT SEES DR RAMIREZ. NON WEIGHT BEARING LEFT UPPER EXTREMITY. FOLLOW UP WITH DR. RAMIREZ IN [place] IN 10-14 DAYS FOR LEFT HUMERUS FRACTURE CARE AND FOLLOW UP. LEFT HIP: -DC SILVERLON DRESSING 7 DAYS POST OP -DARIN HOSE 20 HOURS PER DAY X 4 WEEKS -LOVENOX 40 MG DAILY X 2 WEEKS THEN ASA 325 BID X 6 WEEKS FOR DVT PROPH -FOLLOW UP WITH DR. HEIN IN 10-14 DAYS FOR SUTURE REMOVAL AND XRAY. -WBAT WITH WALKER -POSTERIOR HIP PRECAUTIONS
[2017-08-08] MEDS: CEROVITE ADV FORMULA TAB PO SCH (09:13)
[2017-08-08] MEDS: CALCIUM 600MG + VIT D 400 IU TAB PO SCH (09:13)
[2017-08-08] MEDS: AMLODIPINE BESYLATE 5 MG TAB PO SCH (09:13)
[2017-08-08] MEDS: CHOLECALCIFEROL 1000 INTER.UNIT TAB PO SCH (09:13)
[2017-08-08] MEDS: CHOLECALCIFEROL 400 INTER.UNIT TAB PO SCH (09:14)
[2017-08-08] MEDS: ENOXAPARIN 40 MG/0.4 ML SYR SQ SCH (09:14)
[2017-08-08] MEDS: BISACODYL 5 MG TABEC PO SCH (09:17)
[2017-08-08] MEDS: KETOROLAC TROMETHAMINE 15 MG/ML VIAL IV. PRN (09:18)
[2017-08-08] MEDS ORDERED: MRLP17X PO (12:56)
[2017-08-08] MEDS ORDERED: ULT50X PO (12:56)
--- NOTE | 2017-08-08 12:59 | Discharge Instructions ---
Discharge Instructions Date of Service Aug 08, 2017. Admission Reason for Admission: Left Hip Fracture, Left Humerus Fracture Discharge Discharge Diagnosis / Problem: hip fracture, humerus fracture Discharge Goals Goal(s): Diagnostic testing, Therapeutic intervention Activity Recommendations Activity Level: Assistance Required Therapies: Physical Therapy, Occupational Therapy . Additional Information Patient informed of condition: Yes Advance Directives: Yes DNR: Yes Level of Care: Skilled (rehab emphasis w recent fractures) Communicable Disease: No Prognosis: Improving Instructions / Follow-Up Instructions / Follow-Up Furniture Removalist Recommendations Date of Service Aug 08, 2017. Furniture Removalist Recommendations MAINTAIN LEFT UPPER EXTREMITY SPLINT. FOLLOW UP WITH DR. JAMES CHANEY IN 10-14 DAYS. HIP: -DC SILVERLON DRESSING 7 DAYS POST OP -DARIN HOSE 20 HOURS PER DAY X 4 WEEKS -LOVENOX 40 MG DAILY X 2 WEEKS THEN ASA 325 BID X 6 WEEKS FOR DVT PROPH -FOLLOW UP WITH DR. HEIN IN 10-14 DAYS FOR SUTURE REMOVAL AND XRAY. -WBAT WITH WALKER <Electronically signed by Mady Blum> for osteoporosis - vitamin D levels more than adequate (60.2) -- and already on calcium/D/bisphosphonate - so please refer to endocrinology for evaluation for higher level osteoporosis treatments (such as forteo, prolia) Current Hospital Diet Patient's current hospital diet: AHA Diet (Heart Healthy) Discharge Diet Recommended Diet: AHA Diet (Heart Healthy) Procedures Procedures Performed: Left Bipolar Hemiarthroplasty Cemented; Left Closed Reduction and Splinting Distal Humerus Fracture Pending Studies Studies pending at discharge: yes List of pending studies: surgical pathology from femoral head Medical Emergencies . Who to Call and When: Medical Emergencies: If at any time you feel your situation is an emergency, please call 911 immediately. . Non-Emergent Contact Non-Emergency issues call your: Primary Care Provider, Surgeon . . "Provider Documentation" section prepared by Lowell Jorge. . Furniture Removalist Recommendations Furniture Removalist Recommendations: MAINTAIN LEFT UPPER EXTREMITY SPLINT. FOLLOW UP WITH DR. JAMES CHANEY IN 10-14 DAYS. HIP: -DC SILVERLON DRESSING 7 DAYS POST OP -DARIN HOSE 20 HOURS PER DAY X 4 WEEKS -LOVENOX 40 MG DAILY X 2 WEEKS THEN ASA 325 BID X 6 WEEKS FOR DVT PROPH -FOLLOW UP WITH DR. HEIN IN 10-14 DAYS FOR SUTURE REMOVAL AND XRAY. -WBAT WITH WALKER Core Measure Problem Core Measures: None
[2017-08-08 13:15] VITALS: BP 108/66; PULSE 73; TEMP 37.1; O2SAT 98
[2017-08-08] MEDS ORDERED: ASPI325T45 PO (14:22)
[2017-08-08] MEDS ORDERED: ENOX40IN SQ (14:22)
--- NOTE | 2017-08-09 17:08 | Discharge Summary ---
Discharge Summary Date of Service Aug 09, 2017. Discharge Summary Admission Date: Aug 06, 2017 at 00:12 Discharge Date: Aug 08, 2017 Discharge Disposition: Home Principal Diagnosis: Left hip fracture Problems/Secondary Diagnoses: left humeral fracture, osteoporosis, HTN, Factor V Leiden Immunizations: Have You Had Influenza Vaccine: Unknown History of Tetanus Vaccine?: Unknown History of Pneumococcal: Unknown History of Hepatitis B Vaccine: Unknown Medication Reconciliation New Medications: Aspirin (Aspirin) 325 Mg Tab 1 TAB PO BID, #28 take after 2wks of lovenox complete for DVT proph Enoxaparin (Lovenox) 40 Mg/0.4 Ml Inj 40 MG SQ DAILY for 14 Days, SYR Polyethylene (Miralax) 17 Gm Pow 17 GM PO DAILY PRN for Constipation, #30 PKT Tramadol HCl (Tramadol HCl) 50 Mg Tab 50 MG PO Q4H PRN for Pain, #30 TAB Continued Medications: Acetaminophen Tab (Tylenol) 325 Mg Tab 650 MG PO Q6, TAB Alendronate Sodium (Fosamax) 70 Mg Tab 70 MG PO WK, TAB Amlodipine (Norvasc) 5 Mg Tab 5 MG PO DAILY, TAB Aspirin (Aspirin Chewable) 81 Mg Chew 81 MG PO HS Calcium/Vitamin D (Os-Gold 500 Plus D) Tab 1 TAB PO DAILY, TAB Cholecalciferol (Vitamin D 400 Iu) 400 Unit Cap 800 INTER.UNIT PO DAILY, CAP Multiple Vitamins W/ Minerals (Centrum Silver) 1 Chw Chw 1 TAB PO DAILY [dulcolax] () 5 MG PO DAILY [melatonin] () 3 mg 1 PO DAILY Discharge Exam Review of Systems: Constitutional: No fever, No chills, No weakness, No fatigue Respiratory: No cough, No shortness of breath Cardiovascular: No chest pain, No palpitations Abdomen: No pain, No nausea, No vomiting, No diarrhea, No constipation Physical Exam: General Appearance: WD/WN, no apparent distress Eyes: normal inspection, sclerae normal Neck: supple, no carotid bruits Respiratory/Chest: chest non-tender, lungs clear, normal breath sounds Cardiovascular: regular rate, rhythm, no edema, no gallop Abdomen / GI: normal bowel sounds, non tender, soft Extremities: normal inspection, no calf tenderness, no pedal edema, + pertinent finding (Left arm wrapped in bonnie bandage and elevated in sling. Left hip dressing c/d/i with no underlying hematoma or tenderness to palpation.) Neurologic/Psychiatric: alert, oriented x 3 Hospital Course Osteoporotic Left Hip fracture * History of mechanical fall, resultant Impacted Left Femoral Neck Fracture * Post op and doing well * PT/OT --> D/c to [place] with detention Osteoporotic Left Humerus fracture * History of mechanical fall, resultant Left Humerus fx s/p ORIF complicated acute post-operative fx * Non-operative management when evaluated last week * Pain control as above * Orthopedics consult as above Osteoporosis - D level good at 60, on bisphosphonate already - case management to facilitate endocrinology referral for next level treatments Hypertension * control adequate - continue current meds COPD * Stable, continue current meds * continue to monitor Factor V Leiden, DVT prophylaxis * History of RLE DVT, History fo IVC filter * Coumadin stopped 1 yr ago due to GI bleed * SCD * Lovenox postoperatively --> Discharge on course of Lovenox for 2 weeks and continuing Aspirin after resolution Code status: DNR POLST form in chart Resident Physician Supervision Note: I interviewed and examined the patient. Discussed with Dr. Martin and agree with findings and plan as documented in the note. Any exceptions or clarifications are listed here: None Documented By: Lowell Jorge feeling ok ready for snf vitlas noted nad breathing unlabored no pallor or icterus osteoporotic hip and elbow fractures - improved post op osteoporosis failing vitamin D, calcium, fosamax - refer to endocrine for next level treatments Total Time Spent: Greater than 30 minutes This includes examination of the patient, discharge planning, medication reconciliation, and communication with other providers. Discharge Instructions Please refer to the electronic Patient Visit Report (Discharge Instructions) for additional information. Resident Tracking Resident Involvement: Resident Care Provided Care Provided: Adult Hospital Medicine
[2017-08-10] MEDS ORDERED: ALENDRONATE SODIUM 70 MG TAB PO SCH (07:00)
== END 2017-08-08 16:05 | DRG 470 ==
LOC: C.MSW 08-06 00:12
PROVIDERS: ADMIT Hospitalist; ATTEND Family Medicine
PROC: 0PSHXZZ Reposition Right Radius, External Approach (ICD-10-PCS; principal; 2017-08-06 14:15)
PROC: 0SRB0J9 Replacement of Left Hip Joint with Synthetic Substitute, Cemented, Open Approach (ICD-10-PCS; principal; 2017-08-06 14:15)
DX: M80.052A Age-related osteoporosis with current pathological fracture, left femur, initial encounter for fracture (principal); D68.51 Activated protein C resistance; M80.022A Age-related osteoporosis with current pathological fracture, left humerus, initial encounter for fracture; G56.32 Lesion of radial nerve, left upper limb; J45.909 Unspecified asthma, uncomplicated; J44.9 Chronic obstructive pulmonary disease, unspecified; I10 Essential (primary) hypertension; Z79.899 Other long term (current) drug therapy; Z79.82 Long term (current) use of aspirin; Z66 Do not resuscitate; Z86.718 Personal history of other venous thrombosis and embolism; Z95.828 Presence of other vascular implants and grafts; Z96.619 Presence of unspecified artificial shoulder joint; Z88.5 Allergy status to narcotic agent; W01.0XXA Fall on same level from slipping, tripping and stumbling without subsequent striking against object, initial encounter; Y93.01 Activity, walking, marching and hiking; Y92.198 Other place in other specified residential institution as the place of occurrence of the external cause; Y99.8 Other external cause status